=== PATIENT | female | born 1985 | race Caucasian/White ===

== ENCOUNTER 2017-09-14 10:23 | Emergency (ER) | payer OTHER ==
[~2017-09-14] VITALS: Ht 152.4 cm; Wt 74.5 kg
[2017-09-14 11:42] VITALS: BP 120/62
== END 2017-09-14 11:42 | disposition home or self-care (01) ==
LOC: ED 10:23
DX: H65.91 Unspecified nonsuppurative otitis media, right ear (principal); J32.9 Chronic sinusitis, unspecified